=== PATIENT | female | born 1950 | race Hispanic/Latino ===

== ENCOUNTER 2023-08-29 18:10 | Emergency (ER) | payer MEDICARE, OTHER ==
[~2023-08-29] VITALS: Ht 154.9 cm; Wt 40.8 kg
[2023-08-29] MEDS ORDERED: IBUP-2070 PO (19:45)
[2023-08-29] MEDS ORDERED: IBUPROFEN 600 MG TABLET PO ONE (20:00)
[2023-08-29 20:24] VITALS: BP 110/67; PULSE 81; RESP 16; O2SAT 96
== END 2023-08-29 20:49 | disposition home or self-care (01) ==
LOC: EDH 18:10
DX: S82.231A Displaced oblique fracture of shaft of right tibia, initial encounter for closed fracture (principal); X50.1XXA Overexertion from prolonged static or awkward postures, initial encounter; Y93.89 Activity, other specified; Y92.89 Other specified places as the place of occurrence of the external cause; Y99.8 Other external cause status
CPT/HCPCS: 73610

== ENCOUNTER 2023-09-10 07:40 | Observation (INO) | payer OTHER ==
[2023-09-09 09:24] LABS: ADD UA MICROSCOPIC YES
[2023-09-09 09:28] LABS: BASOPHILS # (AUTO) 0.03 K/uL (0.00-0.20); BASOPHILS % (AUTO) 0.7 % (0.0-5.0); EOSINOPHILS # (AUTO) 0.06 K/uL (0.00-0.70); EOSINOPHILS % (AUTO) 1.3 % (0.0-8.0); HEMATOCRIT 37.6 % (36-48); IMMATURE GRANULOCYTE ABSOLUTE 0.01 K/uL (0-1); LYMPHOCYTES # (AUTO) 1.6 K/uL (1.0-4.8); LYMPHOCYTES % (AUTO) 35.7 % (21.0-51.0); MEAN CORPUSCULAR HEMOGLOBIN 34.9 pg (27.0-33.0); MEAN CORPUSCULAR VOLUME 102.5 fL (79-99); MONOCYTES # (AUTO) 0.6 K/uL (0.1-1.0); MONOCYTES % (AUTO) 13.2 % (3.0-13.0); NEUTROPHILS # (AUTO) 2.2 K/uL (1.8-7.7); NEUTROPHILS % (AUTO) 48.9 % (40.0-77.0); PLATELET COUNT (AUTO) 268 K/uL (130-400); RED BLOOD CELL COUNT(AUTO) 3.67 MIL/uL (4.00-5.50); RED CELL DISTRIBUTION WIDTH 13.2 % (11.0-15.5); WHITE BLOOD COUNT (AUTO) 4.5 K/uL (4.8-10.8)
[2023-09-09 09:40] LABS: APPEARANCE,URINE CLEAR (CLEAR); BILIRUBIN,URINE NEGATIVE (NEGATIVE); COLOR,URINE YELLOW (YELLOW); GLUCOSE, URINE (UA) NEGATIVE (NEGATIVE); KETONES,URINE 5 mg/dL (NEGATIVE); LEUKOCYTE ESTERASE ,URINE NEGATIVE Leu/uL (NEGATIVE); MUCUS,URINE RARE LPF (None Seen); NITRATE,URINE NEGATIVE (NEGATIVE); OCCULT BLOOD,URINE NEGATIVE (NEGATIVE); PH,URINE 6.5 (5.0-8.0); PROTEIN,URINE NEGATIVE (NEGATIVE); RBC,URINE 0-1 /HPF (0-1); SQUAMOUS EPITHELIAL CELL,UR RARE /HPF (0-2)
[2023-09-09 09:42] LABS: INR 0.94 (0.85-1.15); PROTHROMBIN TIME 10.9 SEC (9.6-11.6)
[2023-09-09 09:43] LABS: ALBUMIN 3.9 g/dL (3.5-5.0); CREATININE 0.5 mg/dL (0.5-1.5); PARTIAL THROMBOPLASTIN TIME 27.7 SEC (26.3-35.5); POTASSIUM 3.8 mmol/L (3.5-5.1)
[2023-09-09 09:44] VITALS: BP 131/54; PULSE 68; RESP 16
[2023-09-10] VITALS (20 sets, daily range): BP systolic 108–138; BP diastolic 45–82; PULSE 57–99; RESP 12–20
[~2023-09-10] VITALS: Ht 154.9 cm; Wt 44.0 kg
[~2023-09-10 07:40] MED LIST: ACET-2743 PO; IBUP-2070 PO
[2023-09-10] MEDS ORDERED: LACTATED RINGERS 1000ML 1,000 ML IV ONE (08:15)
[2023-09-10] MEDS ORDERED: CEFAZOLIN SODIUM 2 GM VIAL ONE (08:15)
[2023-09-10] MEDS ORDERED: HYDROMORPHONE 1 MG INJ ONE (11:36)
[2023-09-10] MEDS ORDERED: FAMOTIDINE 20MG VIAL IV ONE (11:36)
[2023-09-10] MEDS ORDERED: LIDOCAINE PF 100MG/5ML (2%) SYRINGE 5ML ONE (11:40)
[2023-09-10] MEDS ORDERED: GLYCOPYRROLATE 1 MG/5 ML SYRINGE ONE (11:41)
[2023-09-10] MEDS ORDERED: FENTANYL CITRATE PF 50 MCG/1 ML 2ML VIAL ONE ×2 (11:41→14:36)
[2023-09-10] MEDS ORDERED: PROPOFOL 10 MG/ML 20ML VIAL IV ONE (11:41)
[2023-09-10] MEDS ORDERED: MIDAZOLAM HCL 1 MG/ML 2ML VIAL ONE (11:47)
[2023-09-10] MEDS ORDERED: ROCURONIUM 10MG/1ML SYR 10 MG/ML ML ONE (11:51)
[2023-09-10] MEDS ORDERED: ONDANSETRON 4MG INJ ONE (12:38)
[2023-09-10] MEDS ORDERED: NEOSTIGMINE 5MG/5ML SYR IV ONE (13:56)
[2023-09-10] MEDS: CEFAZOLIN SODIUM 2 GM VIAL IVPB SCH ×2 (14:30→22:25)
[2023-09-10] MEDS ORDERED: POTASSIUM CHLORIDE 20MEQ/100ML 100 ML IV PRN (14:30)
[2023-09-10] MEDS ORDERED: CALCIUM CARB 500MG PO PRN (14:30)
[2023-09-10] MEDS: 0.9%NACL 1000ML 1,000 ML IV SCH (14:30)
[2023-09-10] MEDS ORDERED: FERROUS FUMARATE 324 MG TABLET PO PRN (14:30)
[2023-09-10] MEDS ORDERED: POTASSIUM CHLORIDE 10% ELIXIR 20 MEQ/15 ML UDCUP PO PRN (14:30)
[2023-09-10] MEDS: TRAMADOL HCL 50 MG TABLET PO PRN (17:40)
[2023-09-10] MEDS: KETOROLAC 15MG/ML VIAL (15MG/ML) IV PRN (19:18)
[2023-09-11] VITALS (8 sets, daily range): BP systolic 114–151; BP diastolic 53–72; PULSE 79–110; RESP 16–20; O2SAT 90–96
[2023-09-11] MEDS: 0.9%NACL 1000ML 1,000 ML IV SCH ×2 (00:16→10:30)
[2023-09-11] MEDS: TRAMADOL HCL 50 MG TABLET PO PRN ×2 (00:19→08:39)
[2023-09-11 04:20] LABS: HEMATOCRIT 30.4 % (36-48); MEAN CORPUSCULAR HEMOGLOBIN 34.5 pg (27.0-33.0); MEAN CORPUSCULAR HGB CONC 33.6 g/dL (32.0-36.0); MEAN CORPUSCULAR VOLUME 102.7 fL (79-99); RED BLOOD CELL COUNT(AUTO) 2.96 MIL/uL (4.00-5.50); RED CELL DISTRIBUTION WIDTH 12.9 % (11.0-15.5); WHITE BLOOD COUNT (AUTO) 5.6 K/uL (4.8-10.8)
[2023-09-11 04:33] LABS: CREATININE 0.5 mg/dL (0.5-1.5); POTASSIUM 3.5 mmol/L (3.5-5.1)
[2023-09-11] MEDS: KETOROLAC 15MG/ML VIAL (15MG/ML) IV PRN ×2 (04:36→11:05)
[2023-09-11] MEDS: POLYETHYLENE GLYCOL 3350 17 GM POWD.PACK PO SCH (08:38)
[2023-09-11] MEDS: KCL 20 MEQ ERTAB PO PRN ×2 (08:38→12:20)
[2023-09-11] MEDS: PSYLLIUM SEED 1 EACH PACKET PO SCH (12:19)
[2023-09-11] MEDS: IBUPROFEN 600 MG TABLET PO PRN (19:18)
[2023-09-12] VITALS: BP 113/59; PULSE 82; RESP 18
[2023-09-12] MEDS: IBUPROFEN 600 MG TABLET PO PRN (01:35)
[2023-09-12 04:00] VITALS: BP 101/59; PULSE 75; RESP 18
[2023-09-12 04:44] LABS: HEMATOCRIT 29.6 % (36-48); MEAN CORPUSCULAR HEMOGLOBIN 34.1 pg (27.0-33.0); MEAN CORPUSCULAR HGB CONC 33.4 g/dL (32.0-36.0); MEAN CORPUSCULAR VOLUME 102.1 fL (79-99); RED BLOOD CELL COUNT(AUTO) 2.9 MIL/uL (4.00-5.50); RED CELL DISTRIBUTION WIDTH 12.6 % (11.0-15.5); WHITE BLOOD COUNT (AUTO) 5.2 K/uL (4.8-10.8)
[2023-09-12 05:07] LABS: CREATININE 0.4 mg/dL (0.5-1.5); POTASSIUM 3.7 mmol/L (3.5-5.1)
[2023-09-12] MEDS: KCL 20 MEQ ERTAB PO PRN ×2 (05:51→08:56)
[2023-09-12 08:00] VITALS: BP 115/66; PULSE 73; RESP 18
[2023-09-12 08:30] VITALS: O2SAT 96
[2023-09-12] MEDS: POLYETHYLENE GLYCOL 3350 17 GM POWD.PACK PO SCH (08:55)
[2023-09-12] MEDS: TRAMADOL HCL 50 MG TABLET PO PRN ×2 (08:57→15:15)
[2023-09-12 11:05] VITALS: BP 134/68; PULSE 104; RESP 20
[2023-09-12] MEDS: PSYLLIUM SEED 1 EACH PACKET PO SCH (12:39)
[2023-09-12] MEDS ORDERED: BISACODYL 5 MG TABLET.DR PO PRN (14:30)
[2023-09-12 15:05] VITALS: BP 133/67; PULSE 98; RESP 20
[2023-09-12] MEDS ORDERED: ASPI-1012 PO (16:56)
[2023-09-12] MEDS ORDERED: TRAM50TA4 PO (16:56)
[2023-09-13] MEDS ORDERED: BISACODYL 10 MG SUPP.RECT RC PRN (14:30)
== END 2023-09-12 18:55 | disposition home or self-care (01) ==
LOC: DAH 07:40 → DAHIP 07:41 → DAH 07:41 → EDSTATUS 15:00 → 4CH 16:55
PROVIDERS: ADMIT Student in an Organized Health Care Education/Training Program; ATTEND Student in an Organized Health Care Education/Training Program
DX: S82.301A Unspecified fracture of lower end of right tibia, initial encounter for closed fracture (principal); S82.401A Unspecified fracture of shaft of right fibula, initial encounter for closed fracture; S82.201A Unspecified fracture of shaft of right tibia, initial encounter for closed fracture; M25.571 Pain in right ankle and joints of right foot; D62 Acute posthemorrhagic anemia; Z79.899 Other long term (current) drug therapy; Z98.890 Other specified postprocedural states; V00.811A Fall from moving wheelchair (powered), initial encounter; Y93.89 Activity, other specified; Y92.89 Other specified places as the place of occurrence of the external cause; Y99.8 Other external cause status
CPT/HCPCS: 82040; 80048 ×3; 85025; 85610; 85730; 87088; 84134; 86140; 81001; 36415 ×3; 87641; 27752; 96365; 96375; 73590; 96376 ×2; 85027 ×2; 97161; 97116 ×4; 97530 ×6; G0378 ×50; A4663; J7120; J3490 ×2; J3010 ×2; J1170; J2710; J2001; J2250; J2704; J2405; J1885 ×3; J0690 ×2; A4649 ×3; C1713 ×2; C1776; A4930; A5120; A4215; A4223; A4222; A4221